=== PATIENT | female | born 1985 | race Caucasian/White ===

== ENCOUNTER 2018-09-28 08:59 | Inpatient (IN) | payer BC ==
[2018-09-28] MEDS ORDERED: Nalbuphine 10 MG/1 ML Vial IVPUSH PRN (21:29)
[2018-09-28] MEDS ORDERED: Water For Irrigation,Sterile 1,000 ML Container IRR PRN (21:29)
[2018-09-28] MEDS ORDERED: Butorphanol 1 MG/ML SDV IVPUSH PRN (21:29)
[2018-09-28] MEDS ORDERED: Tranexamic Acid 1,000 MG in Sodium Chloride 0.9% 100 ML IV PRN (21:29)
[2018-09-28] MEDS ORDERED: Sodium Chloride 0.9% 10 ML Syringe FLUSH PRN (21:29)
[2018-09-28] MEDS ORDERED: Misoprostol 200 MCG Tab PO PRN (21:29)
[2018-09-28] MEDS ORDERED: Sodium Chloride 0.9% 10 ML SDV IV PRN (21:29)
[2018-09-28] MEDS ORDERED: Methylergonovine 0.2 MG/1 ML Amp IM PRN (21:29)
[2018-09-28] MEDS ORDERED: Lidocaine 1% 50 ML MDV INJECT PRN (21:29)
[2018-09-28] MEDS ORDERED: Carboprost Tromethamine 250 MCG/1 ML Amp IM PRN (21:29)
[2018-09-28] MEDS ORDERED: Oxytocin/0.9 % Sodium Chloride 30 UNIT/500 ML BAG IV SCH (21:30)
[2018-09-29] MEDS ORDERED: Terbutaline 1 MG/ML SDV SUBCUT PRN (00:18)
[2018-09-29] MEDS ORDERED: Oxytocin/0.9 % Sodium Chloride 30 UNIT/500 ML BAG IV SCH (00:30)
[2018-09-29] MEDS: Lactated Ringers 1,000 ML IV SCH ×2 (00:33→03:35)
[2018-09-29] MEDS ORDERED: Lidocaine HCl/EPINEPHrine 5 ML IJ ONE (03:30)
--- NOTE | 2018-09-29 04:14 | PCM.PREANE ---
Preanesthetic Assessment - Procedure Proposed Procedure: Continuous Labor Epidural - Anesthesia/Transfusion/Family Hx Anesthesia History: Prior Anesthesia Without Reaction Family History of Anesthesia Reaction: No Transfusion History: No Prior Transfusion(s) - Review of Systems General: No Symptoms Pulmonary: No Symptoms Cardiovascular: No Symptoms Gastrointestinal: No Symptoms Neurological: No Symptoms Other: Reports: None - Physical Assessment Height: 5 ft 5 in Weight: 104.326 kg ASA Class: 2 Mental Status: Alert & Oriented x3 Airway Class: Mallampati = 2 Dentition: Reports: Normal Dentition Thyro-Mental Finger Breadths: 3 Mouth Opening Finger Breadths: 3 ROM/Head Extension: Full Lungs: Clear to Auscultation, Normal Respiratory Effort Cardiovascular: Regular Rate, Regular Rhythm - Lab Values: Laboratory Last Values WBC 11.28 K/uL (4.0-11.0) H 09/28/18 21:45 RBC 4.00 M/uL (4.30-5.90) L 09/28/18 21:45 Hgb 10.9 g/dL (12.0-16.0) L 09/28/18 21:45 Hct 34.0 % (36.0-46.0) L 09/28/18 21:45 MCV 85.0 fL (80.0-98.0) 09/28/18 21:45 MCH 27.3 pg (27.0-32.0) 09/28/18 21:45 MCHC 32.1 g/dL (31.0-37.0) 09/28/18 21:45 RDW Std Deviation 43.5 fl (28.0-62.0) 09/28/18 21:45 RDW Coeff of Kei 14 % (11.0-15.0) 09/28/18 21:45 Plt Count 277 K/uL (150-400) 09/28/18 21:45 MPV 10.20 fL (7.40-12.00) 09/28/18 21:45 Nucleated RBC % 0.0 /100WBC 09/28/18 21:45 Nucleated RBCs # 0 K/uL 09/28/18 21:45 Membrane Rupture POSITIVE 09/28/18 20:30 Blood Type A POSITIVE 09/28/18 21:45 Antibody Screen NEGATIVE 09/28/18 21:45 - Allergies Allergies/Adverse Reactions: Allergies Allergy/AdvReac Type Severity Reaction Status Date / Time No Known Allergies Allergy Verified 11/15/14 22:04 - Acknowledgements Anesthesia Type Planned: Epidural Pt an Appropriate Candidate for the Planned Anesthesia: Yes Alternatives and Risks of Anesthesia Discussed w Pt/Guardian: Yes Pt/Guardian Understands and Agrees with Anesthesia Plan: Yes PreAnesthesia Questionnaire HEENT History: Reports: None Cardiovascular History: Reports: None Respiratory History: Reports: Other (See Below) (Current Cough/Cold) Gastrointestinal History: Reports: GERD Genitourinary History: Reports: Other (See Below) Other Genitourinary History: Kidney stones A CLASS LINEMAN History: Reports: : 3 Para: 2 LMP (Approximate): Other Musculoskeletal History: Right arm bone cyst excision x2 Neurological History: Reports: None Psychiatric History: Reports: ADHD, Depression Endocrine/Metabolic History: Reports: None Hematologic History: Reports: None Immunologic History: Reports: None Oncologic (Cancer) History: Reports: None Dermatologic History: Reports: None - Infectious Disease History Infectious Disease History: Reports: None - Past Surgical History HEENT Surgical History: Reports: Other (See Below) Other HEENT Surgeries/Procedures: wisdom teeth extraction Musculoskeletal Surgical History: Reports: Other (See Below) Other Musculoskeletal Surgeries/Procedures:: bone cyst removes right elbow X 2 - SUBSTANCE USE Smoking Status *Q: Never Smoker Tobacco Use Within Last Twelve Months: No Second Hand Smoke Exposure: No Recreational Drug Use History: No - HOME MEDS Home Medications: Home Meds Lisdexamfetamine [Vyvanse] 20 mg PO DAILY 11/27/13 [History] Acetaminophen [Tylenol Extra Strength] 500 mg PO Q4H PRN #1 tablet 11/17/14 [Rx] Ibuprofen [Motrin] 800 mg PO Q6H PRN #1 tablet 11/17/14 [Rx] Lanolin [Lansinoh HPA] 1 g TOP ASDIRECTED PRN #1 crm 11/17/14 [Rx] Pae308/FA/Omega3/Dha/Fish Oil [ Gummies] 2 tab PO DAILY 09/28/18 [ History] Sertraline [Zoloft] 100 mg PO DAILY 09/28/18 [History] buPROPion HCl [Wellbutrin Xl] 300 mg PO DAILY 09/28/18 [History] - CURRENT (IN HOUSE) MEDS Current Meds: Current Medications Butorphanol Tartrate (Stadol) 1 mg IVPUSH ASDIRECTED PRN PRN Reason: Pain Carboprost Tromethamine (Hemabate Ds) 250 mcg IM ASDIRECTED PRN PRN Reason: Post Hemorrhage Tranexamic Acid 1,000 mg/ (Sodium Chloride) 110 mls @ 660 mls/hr IV ONETIME PRN PRN Reason: Bleeding Lactated Ringer's (Ringers, Lactated) 1,000 mls @ 150 mls/hr IV ASDIRECTED SAM Last Admin: 09/29/18 03:35 Dose: 999 mls/hr Oxytocin/Sodium Chloride (Oxytocin 30 Unit/500 Ml-Ns) 30 unit in 500 mls @ 999 mls/hr IV TITRATE SAM Oxytocin/Sodium Chloride (Oxytocin 30 Unit/500 Ml-Ns) 30 unit in 500 mls @ 2 mls/hr IV TITRATE SAM; Protocol Last Admin: 09/29/18 00:43 Dose: 2 munits/min, 2 mls/hr Lidocaine HCl (Xylocaine 1%) 50 ml INJECT ONETIME PRN PRN Reason: Laceration repair Methylergonovine Maleate (Methergine) 0.2 mg IM ASDIRECTED PRN PRN Reason: Post Hemorrhage Misoprostol (Cytotec) 200 mcg PO ONETIME PRN PRN Reason: Post Hemorrhage Nalbuphine HCl (Nubain) 10 mg IVPUSH ASDIRECTED PRN PRN Reason: Pain (severe 7-10) Sodium Chloride (Saline Flush) 10 ml FLUSH ASDIRECTED PRN PRN Reason: Keep Vein Open Sodium Chloride (Normal Saline) 10 ml IV ASDIRECTED PRN PRN Reason: IV Use Sterile Water (Sterile Water For Irrigation) 1,000 ml IRR ASDIRECTED PRN PRN Reason: delivery Terbutaline Sulfate (Brethine) 0.25 mg SUBCUT ASDIRECTED PRN PRN Reason: Tacysystole Discontinued Medications Fentanyl/Bupivacaine HCl (Zbyauwwy-Vdfwt-Ig 2 Mcg/Ml-0.125%) Confirm Administered Dose 100 mls @ as directed .ROUTE .STK-MED ONE Stop: 09/29/18 03:24 Lidocaine/Epinephrine (Lidocaine 1.5%-Epi 1:200,000) Confirm Administered Dose 5 ml IJ .STK-MED ONE Stop: 09/29/18 03:31
[2018-09-29] MEDS ORDERED: Bupivacaine 0.5% 10 ML SDV ONE (07:16)
[2018-09-29] MEDS ORDERED: fentaNYL 100 MCG/2 ML SDV ONE (07:16)
--- NOTE | 2018-09-29 07:37 | PCM.SN ---
- Free Text/Narrative Note: [id number]: Called to LDR 2 for patient complaint of pain during contractions. Since epidural placement, Patient has advanced from 4cm to 8-9cm. 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 Patient is able to move both legs with some numbness. Explained precautions of giving additional medications via epidural. Goal is to have patient comfortable but still be able to push for delivery. Provider bolus of 100 mcg of fentanyl and 5 ml of 0.5% Marcaine given at 0724. Reassessed patient at 0739. Patient states that she is much more comfortable. She verbalizes that she can still feel the contractions, move her legs and is at an acceptable level of pain.
[2018-09-29] MEDS ORDERED: Bisacodyl 10 MG Supp RECTAL PRN (10:07)
[2018-09-29] MEDS ORDERED: Witch Hazel Medicated Pads 40/Jar TOP PRN (10:07)
[2018-09-29] MEDS ORDERED: Lanolin 100% Cream 7 GM Tube TOP PRN (10:07)
[2018-09-29] MEDS ORDERED: Ibuprofen 400 MG Tab PO PRN (10:07)
[2018-09-29] MEDS ORDERED: Acetaminophen 500 MG Tab PO PRN ×2 (10:07)
[2018-09-29] MEDS ORDERED: Benzocaine/Menthol 20%-0.5% Spray 78 GM Cannister TOP PRN (10:07)
[2018-09-29] MEDS ORDERED: oxyCODONE 5 MG Tab PO PRN (10:07)
--- NOTE | 2018-09-29 11:57 | PCM.DEL ---
L & D Note - General Info Date of Service: 09/29/18 Mother's Due Date: 09/28/18 - Delivery Note Labor: Spontaneous Delivery Outcome: Livebirth Infant Delivery Method: Spontaneous Vaginal Delivery-Single Presentation: Vertex Nuchal Cord: Reduced Anesthetic: Lidocaine (Xylocaine) 1% Plain Amniotic Fluid Description: Clear Laceration: 2nd Degree Suture type: Other (monocryl ) Suture size: 2-0 Placenta: Intact Cord: 3 Vessels Estimated Blood Loss: 300 Resuscitation Needed: No : Suctioned, Stimulated, Warmed Score 1 min: 8 Score 5 min: 9 Delivery Comments (Free Text/Narrative):: Live female delivered at 859am , 8/9 weight 3730g - General Info Date of Service: 09/29/18 - Patient Data Weight - Most Recent: 104.326 kg Lab Results Last 24 Hours: Laboratory Results - last 24 hr 09/28/18 09/28/18 09/28/18 Range/Units 20:30 21:45 21:45 WBC 11.28 H (4.0-11.0) K/uL RBC 4.00 L (4.30-5.90) M/uL Hgb 10.9 L (12.0-16.0) g/dL Hct 34.0 L (36.0-46.0) % MCV 85.0 (80.0-98.0) fL MCH 27.3 (27.0-32.0) pg MCHC 32.1 (31.0-37.0) g/dL RDW Std Deviation 43.5 (28.0-62.0) fl RDW Coeff of Kei 14 (11.0-15.0) % Plt Count 277 (150-400) K/uL MPV 10.20 (7.40-12.00) fL Nucleated RBC % 0.0 /100WBC Nucleated RBCs # 0 K/uL Membrane Rupture POSITIVE Blood Type A POSITIVE Antibody Screen NEGATIVE Med Orders - Current: Current Medications Acetaminophen (Tylenol Extra Strength) 500 mg PO Q4H PRN PRN Reason: Pain Acetaminophen (Tylenol Extra Strength) 1,000 mg PO Q4H PRN PRN Reason: Pain Benzocaine/Menthol (Dermoplast Pain Relief 20%-0.5% [place]) 78 gm TOP ASDIRECTED PRN PRN Reason: Perineal Comfort Measure Bisacodyl (Dulcolax) 10 mg RECTAL ONETIME PRN PRN Reason: Constipation Butorphanol Tartrate (Stadol) 1 mg IVPUSH ASDIRECTED PRN PRN Reason: Pain Carboprost Tromethamine (Hemabate Ds) 250 mcg IM ASDIRECTED PRN PRN Reason: Post Hemorrhage Docusate Sodium (Colace) 100 mg PO BID PRN PRN Reason: Constipation Emollient Ointment (Lansinoh Hpa) 0 gm TOP ASDIRECTED PRN PRN Reason: Sore Nipples Tranexamic Acid 1,000 mg/ (Sodium Chloride) 110 mls @ 660 mls/hr IV ONETIME PRN PRN Reason: Bleeding Lactated Ringer's (Ringers, Lactated) 1,000 mls @ 150 mls/hr IV ASDIRECTED SAM Last Admin: 09/29/18 03:35 Dose: 999 mls/hr Oxytocin/Sodium Chloride (Oxytocin 30 Unit/500 Ml-Ns) 30 unit in 500 mls @ 999 mls/hr IV TITRATE SAM Oxytocin/Sodium Chloride (Oxytocin 30 Unit/500 Ml-Ns) 30 unit in 500 mls @ 2 mls/hr IV TITRATE SAM; Protocol Last Titration: 09/29/18 05:52 Dose: 14 munits/min, 14 mls/hr Ibuprofen (Motrin) 400 mg PO Q4H PRN PRN Reason: Pain Ibuprofen (Motrin) 800 mg PO Q6H PRN PRN Reason: Pain Lidocaine HCl (Xylocaine 1%) 50 ml INJECT ONETIME PRN PRN Reason: Laceration repair Methylergonovine Maleate (Methergine) 0.2 mg IM ASDIRECTED PRN PRN Reason: Post Hemorrhage Misoprostol (Cytotec) 200 mcg PO ONETIME PRN PRN Reason: Post Hemorrhage Nalbuphine HCl (Nubain) 10 mg IVPUSH ASDIRECTED PRN PRN Reason: Pain (severe 7-10) Oxycodone HCl (Oxycodone) 5 mg PO Q2H PRN PRN Reason: Pain Sodium Chloride (Saline Flush) 10 ml FLUSH ASDIRECTED PRN PRN Reason: Keep Vein Open Sodium Chloride (Normal Saline) 10 ml IV ASDIRECTED PRN PRN Reason: IV Use Sterile Water (Sterile Water For Irrigation) 1,000 ml IRR ASDIRECTED PRN PRN Reason: delivery Last Admin: 09/29/18 09:20 Dose: 1,000 ml Terbutaline Sulfate (Brethine) 0.25 mg SUBCUT ASDIRECTED PRN PRN Reason: Tacysystole Tevin Chawla (Tucks) 1 pad TOP ASDIRECTED PRN PRN Reason: comfort care Discontinued Medications Bupivacaine HCl (Sensorcaine-Mpf 0.5%) Confirm Administered Dose 10 ml .ROUTE .STK-MED ONE Stop: 09/29/18 07:17 Fentanyl (Sublimaze) Confirm Administered Dose 100 mcg .ROUTE .STK-MED ONE Stop: 09/29/18 07:17 Fentanyl/Bupivacaine HCl (Ioluoirg-Pnlfn-Nq 2 Mcg/Ml-0.125%) Confirm Administered Dose 100 mls @ as directed .ROUTE .STK-MED ONE Stop: 09/29/18 03:24 Lidocaine/Epinephrine (Lidocaine 1.5%-Epi 1:200,000) Confirm Administered Dose 5 ml IJ .STK-MED ONE Stop: 09/29/18 03:31 - Problem List & Annotations (1) Vaginal delivery SNOMED Code(s): 619567606 Code(s): O80 - ENCOUNTER FOR FULL-TERM UNCOMPLICATED DELIVERY Status: Acute Current Visit: Yes - Problem List Review Problem List Initiated/Reviewed/Updated: Yes - My Orders Last 24 Hours: My Active Orders 09/28/18 20:46 Non Stress Test [RC] PER UNIT ROUTINE Up ad Teresa [RC] ASDIRECTED Vaginal Exam [RC] Click to Edit Vital Signs [RC] PER UNIT ROUTINE Resuscitation Status Routine 09/28/18 21:29 Patient Status [ADT] Routine Heart Tones [RC] CONTINUOUS Non Stress Test [RC] PER UNIT ROUTINE May Shower [RC] ASDIRECTED Notify Provider [RC] PRN Up ad Teresa [RC] ASDIRECTED Vaginal Exam [RC] PRN Vital Signs [RC] PER UNIT ROUTINE Butorphanol [Stadol] 1 mg IVPUSH ASDIRECTED PRN Carboprost Tromethamine [Hemabate DS] 250 mcg IM ASDIRECTED PRN Lidocaine 1% [Xylocaine 1%] 50 ml INJECT ONETIME PRN Methylergonovine [Methergine] 0.2 mg IM ASDIRECTED PRN Nalbuphine [Nubain] 10 mg IVPUSH ASDIRECTED PRN Sodium Chloride 0.9% [Normal Saline] 10 ml IV ASDIRECTED PRN Sodium Chloride 0.9% [Saline Flush] 10 ml FLUSH ASDIRECTED PRN Tranexamic Acid [Cyklokapron] 1,000 mg Sodium Chloride 0.9% [Normal Saline] 100 ml IV ONETIME Water For Irrigation,Sterile [Sterile Water for Irrigation] 1,000 ml IRR ASDIRECTED PRN miSOPROStol [Cytotec] 200 mcg PO ONETIME PRN Scalp Electrode [WOMSER] Per Unit Routine Peripheral IV Insertion Adult [OM.PC] Routine 09/28/18 21:30 Lactated Ringers [Ringers, Lactated] 1,000 ml IV ASDIRECTED Oxytocin/0.9 % Sodium Chloride [Oxytocin 30 Unit/500 ML-NS] 30 unit in 500 ml IV TITRATE 09/29/18 00:18 Terbutaline [Brethine] 0.25 mg SUBCUT ASDIRECTED PRN 09/29/18 00:20 Bedrest Bathroom Privileges [RC] ASDIRECTED Communication Order [RC] ASDIRECTED Communication Order [RC] ASDIRECTED Notify Provider [RC] PRN Notify Provider [RC] STAT Oxygen Therapy [RC] ASDIRECTED Vaginal Exam [RC] PRN Vital Signs [RC] PER UNIT ROUTINE 09/29/18 00:30 Oxytocin/0.9 % Sodium Chloride [Oxytocin 30 Unit/500 ML-NS] 30 unit in 500 ml IV TITRATE Medication Administration Instruction [OM.PC] Q3H 09/29/18 10:07 Patient Status [ADT] Routine May Shower [RC] ASDIRECTED Up ad Teresa [RC] ASDIRECTED Vital Signs [RC] PER UNIT ROUTINE Acetaminophen [Tylenol Extra Strength] 1,000 mg PO Q4H PRN Acetaminophen [Tylenol Extra Strength] 500 mg PO Q4H PRN Benzocaine/Menthol [Dermoplast Pain Relief 20%-0.5% [place]] 78 gm TOP ASDIRECTED PRN Bisacodyl [Dulcolax] 10 mg RECTAL ONETIME PRN Docusate Sodium [Colace] 100 mg PO BID PRN Ibuprofen [Motrin] 400 mg PO Q4H PRN Ibuprofen [Motrin] 800 mg PO Q6H PRN Lanolin [Lansinoh HPA] See Dose Instructions TOP ASDIRECTED PRN Tevin Chawla [Tucks] 1 pad TOP ASDIRECTED PRN oxyCODONE 5 mg PO Q2H PRN Assess Lochia [WOMSER] Per Unit Routine Assess Uterine Involution [WOMSER] Per Unit Routine Peripheral IV Discontinue [OM.PC] Routine 09/29/18 Breakfast Regular Diet [DIET] 09/30/18 05:11 HEMOGLOBIN/HEMATOCRIT,HH [HEME] Timed
[2018-09-29] MEDS: Ibuprofen 800 MG Tab PO PRN ×2 (12:04→19:48)
--- NOTE | 2018-09-29 13:41 | OR ---
SURGEON: KARL YOUSIF DATE OF PROCEDURE:09/29/2018 PREOPERATIVE DIAGNOSIS: A 32-year-old, G3, P2-0-0-2 at 37wk6d, admitted in early labor. POSTOPERATIVE DIAGNOSIS: A 32-year-old, G3, P2-0-0-2 at 37wk6d, admitted in early labor. PROCEDURE: Normal spontaneous vaginal delivery. ESTIMATED BLOOD LOSS: 300 mL. ANESTHESIA: Epidural. NOTES AND FINDINGS: Live female delivered at 8:59 a.m. score is 8 and 9. Weight is 3730 g. BRIEF HISTORY: A 32-year-old, G3, P2-0-0-2, at 38 weeks, who came in at 37 weeks and 6 days complaining of rupture of membrane and some contractions. The patient was about 3 cm dilated. She was given time. She made slight change, so she was started on Pitocin. With the patient receiving Pitocin, she made change. She became fully dilated. Membrane was noted. When she was fully dilated, she was ruptured. She was then encouraged to push. DESCRIPTION OF PROCEDURE: With good pushing effort, she delivered the head subsequently by the anterior and posterior shoulder. The body of the was delivered and delayed cord clamping was observed. The perineum was inspected and noted to be intact. Cord blood gases were obtained. All instrument and pad count were correct x2. She was left in Labor and Delivery room in stable condition. MAN MELTON /[id number] MTDSugar
[2018-09-29] MEDS: Docusate Sodium 100 MG Cap PO PRN (19:49)
--- NOTE | 2018-09-30 07:18 | PCM48HPAN ---
Post Anesthesia Note - EVALUATION WITHIN 48HRS OF ANESTHETIC Vital Signs in Normal Range: Yes Patient Participated in Evaluation: Yes Respiratory Function Stable: Yes Airway Patent: Yes Cardiovascular Function Stable: Yes Hydration Status Stable: Yes Pain Control Satisfactory: Yes Nausea and Vomiting Control Satisfactory: Yes Mental Status Recovered: Yes Pulse Rate: 103 SaO2: 97 Resp Rate: 17 Temperature: 97.8 F Blood Pressure: 135/88
[2018-09-30] MEDS: Docusate Sodium 100 MG Cap PO PRN (07:35)
[2018-09-30] MEDS: Ibuprofen 800 MG Tab PO PRN (07:35)
--- NOTE | 2018-09-30 07:51 | PCM.PNPP ---
- General Info Date of Service: 09/30/18 Subjective Update: 32yo s/p , PPD 1 , ambulating , voiding and tolerating regular diet Functional Status: Reports: Pain Controlled, Tolerating Diet, Ambulating, Urinating - Review of Systems General: Reports: No Symptoms HEENT: Reports: No Symptoms Pulmonary: Reports: No Symptoms Cardiovascular: Reports: No Symptoms Gastrointestinal: Reports: No Symptoms Genitourinary: Reports: No Symptoms Musculoskeletal: Reports: No Symptoms Skin: Reports: No Symptoms Neurological: Reports: No Symptoms Psychiatric: Reports: No Symptoms - General Info Date of Service: 09/30/18 - Patient Data Vital Signs - Most Recent: Last Vital Signs Temp 36.6 C 09/30/18 07:18 Pulse 103 H 09/30/18 07:18 Resp 17 09/30/18 07:18 BP 135/88 09/30/18 07:18 Pulse Ox 97 09/30/18 07:18 Weight - Most Recent: 104.326 kg Lab Results - Last 24 Hours: Laboratory Results - last 24 hr 09/29/18 09/29/18 09/30/18 Range/Units 08:54 08:54 06:18 Hgb 10.9 L (12.0-16.0) g/dL Hct 34.0 L (36.0-46.0) % Cord ABG pH 7.220 (7.18-7.38) Cord ABG Base Excess -6 (-10--2) Cord VBG pH 7.276 (7.25-7.45) Cord VBG Base Excess -6 (-10--2) Med Orders - Current: Current Medications Acetaminophen (Tylenol Extra Strength) 500 mg PO Q4H PRN PRN Reason: Pain Acetaminophen (Tylenol Extra Strength) 1,000 mg PO Q4H PRN PRN Reason: Pain Benzocaine/Menthol (Dermoplast Pain Relief 20%-0.5% [place]) 78 gm TOP ASDIRECTED PRN PRN Reason: Perineal Comfort Measure Last Admin: 09/29/18 19:48 Dose: 78 gm Bisacodyl (Dulcolax) 10 mg RECTAL ONETIME PRN PRN Reason: Constipation Butorphanol Tartrate (Stadol) 1 mg IVPUSH ASDIRECTED PRN PRN Reason: Pain Carboprost Tromethamine (Hemabate Ds) 250 mcg IM ASDIRECTED PRN PRN Reason: Post Hemorrhage Docusate Sodium (Colace) 100 mg PO BID PRN PRN Reason: Constipation Last Admin: 09/30/18 07:35 Dose: 100 mg Emollient Ointment (Lansinoh Hpa) 0 gm TOP ASDIRECTED PRN PRN Reason: Sore Nipples Tranexamic Acid 1,000 mg/ (Sodium Chloride) 110 mls @ 660 mls/hr IV ONETIME PRN PRN Reason: Bleeding Lactated Ringer's (Ringers, Lactated) 1,000 mls @ 150 mls/hr IV ASDIRECTED SAM Last Admin: 09/29/18 03:35 Dose: 999 mls/hr Oxytocin/Sodium Chloride (Oxytocin 30 Unit/500 Ml-Ns) 30 unit in 500 mls @ 999 mls/hr IV TITRATE SAM Oxytocin/Sodium Chloride (Oxytocin 30 Unit/500 Ml-Ns) 30 unit in 500 mls @ 2 mls/hr IV TITRATE SAM; Protocol Last Titration: 09/29/18 05:52 Dose: 14 munits/min, 14 mls/hr Ibuprofen (Motrin) 400 mg PO Q4H PRN PRN Reason: Pain Ibuprofen (Motrin) 800 mg PO Q6H PRN PRN Reason: Pain Last Admin: 09/30/18 07:35 Dose: 800 mg Lidocaine HCl (Xylocaine 1%) 50 ml INJECT ONETIME PRN PRN Reason: Laceration repair Methylergonovine Maleate (Methergine) 0.2 mg IM ASDIRECTED PRN PRN Reason: Post Hemorrhage Misoprostol (Cytotec) 200 mcg PO ONETIME PRN PRN Reason: Post Hemorrhage Oxycodone HCl (Oxycodone) 5 mg PO Q2H PRN PRN Reason: Pain Sodium Chloride (Saline Flush) 10 ml FLUSH ASDIRECTED PRN PRN Reason: Keep Vein Open Sodium Chloride (Normal Saline) 10 ml IV ASDIRECTED PRN PRN Reason: IV Use Sterile Water (Sterile Water For Irrigation) 1,000 ml IRR ASDIRECTED PRN PRN Reason: delivery Last Admin: 09/29/18 09:20 Dose: 1,000 ml Witch Cammy (Tucks) 1 pad TOP ASDIRECTED PRN PRN Reason: comfort care Discontinued Medications Bupivacaine HCl (Sensorcaine-Mpf 0.5%) Confirm Administered Dose 10 ml .ROUTE .STK-MED ONE Stop: 09/29/18 07:17 Fentanyl (Sublimaze) Confirm Administered Dose 100 mcg .ROUTE .STK-MED ONE Stop: 09/29/18 07:17 Fentanyl/Bupivacaine HCl (Wztrcjsk-Gqwiu-Jm 2 Mcg/Ml-0.125%) Confirm Administered Dose 100 mls @ as directed .ROUTE .STK-MED ONE Stop: 09/29/18 03:24 Lidocaine/Epinephrine (Lidocaine 1.5%-Epi 1:200,000) Confirm Administered Dose 5 ml IJ .STK-MED ONE Stop: 09/29/18 03:31 Nalbuphine HCl (Nubain) 10 mg IVPUSH ASDIRECTED PRN PRN Reason: Pain (severe 7-10) Terbutaline Sulfate (Brethine) 0.25 mg SUBCUT ASDIRECTED PRN PRN Reason: Tacysystole - Interaction Support Person: - Recovery Exam Fundal Tone: Firm Fundal Level: 1 Fingerbreadths Below Umbilicus Fundal Placement: Midline Lochia Amount: Small, Moderate Lochia Color: Rubra/Red Perineum Description: Intact, Minimal Bruising/Swelling Episiotomy/Laceration: None Bladder Status: Voiding - Exam General: Alert HEENT: Pupils Equal, Pupils Reactive Neck: Supple Lungs: Clear to Auscultation, Normal Respiratory Effort Cardiovascular: Regular Rate, Regular Rhythm GI/Abdominal Exam: Normal Bowel Sounds Extremities: Normal Inspection Psy/Mental Status: Alert - Problem List & Annotations (1) Vaginal delivery SNOMED Code(s): 218714579 Code(s): O80 - ENCOUNTER FOR FULL-TERM UNCOMPLICATED DELIVERY Status: Acute Current Visit: Yes - Problem List Review Problem List Initiated/Reviewed/Updated: Yes - My Orders Last 24 Hours: My Active Orders 09/29/18 10:07 Patient Status [ADT] Routine May Shower [RC] ASDIRECTED Up ad Teresa [RC] ASDIRECTED Vital Signs [RC] PER UNIT ROUTINE Acetaminophen [Tylenol Extra Strength] 1,000 mg PO Q4H PRN Acetaminophen [Tylenol Extra Strength] 500 mg PO Q4H PRN Benzocaine/Menthol [Dermoplast Pain Relief 20%-0.5% [place]] 78 gm TOP ASDIRECTED PRN Bisacodyl [Dulcolax] 10 mg RECTAL ONETIME PRN Docusate Sodium [Colace] 100 mg PO BID PRN Ibuprofen [Motrin] 400 mg PO Q4H PRN Ibuprofen [Motrin] 800 mg PO Q6H PRN Lanolin [Lansinoh HPA] See Dose Instructions TOP ASDIRECTED PRN Witch Cammy [Tucks] 1 pad TOP ASDIRECTED PRN oxyCODONE 5 mg PO Q2H PRN Assess Lochia [WOMSER] Per Unit Routine Assess Uterine Involution [WOMSER] Per Unit Routine Peripheral IV Discontinue [OM.PC] Routine - Assessment Assessment:: 32 yo s/p stable , normal lochia - Plan Plan:: Discharge home today
[2018-09-30 08:14] VITALS: BP 123/71
== END 2018-09-30 11:20 | disposition home or self-care (01) | DRG 560 ==
LOC: MW.OB 08:59 → OBSVTOIN 09-29 08:59 → MW.OB 09-29 16:00
PROVIDERS: ADMIT Obstetrics & Gynecology; ATTEND Obstetrics & Gynecology
PROC: 10907ZC Drainage of Amniotic Fluid, Therapeutic from Products of Conception, Via Natural or Artificial Opening (ICD-10-PCS; principal; 2018-09-29)
PROC: 6A550ZT Pheresis of Cord Blood Stem Cells, Single (ICD-10-PCS; principal; 2018-09-29)
PROC: 10E0XZZ Delivery of Products of Conception, External Approach (ICD-10-PCS; principal; 2018-09-29)
PROC: 3E0R3BZ Introduction of Anesthetic Agent into Spinal Canal, Percutaneous Approach (ICD-10-PCS; 2018-09-29)
PROC: 00HU33Z Insertion of Infusion Device into Spinal Canal, Percutaneous Approach (ICD-10-PCS; 2018-09-29)
DX: O40.3XX0 Polyhydramnios, third trimester, not applicable or unspecified (principal); O36.63X0 Maternal care for excessive fetal growth, third trimester, not applicable or unspecified; O99.344 Other mental disorders complicating childbirth; F32.9 Major depressive disorder, single episode, unspecified; Z3A.37 37 weeks gestation of pregnancy; Z37.0 Single live birth; O69.81X0 Labor and delivery complicated by cord around neck, without compression, not applicable or unspecified; O99.62 Diseases of the digestive system complicating childbirth; K21.9 Gastro-esophageal reflux disease without esophagitis; F90.9 Attention-deficit hyperactivity disorder, unspecified type; Z87.442 Personal history of urinary calculi; Z79.899 Other long term (current) drug therapy
CPT/HCPCS: 36415; 59025; 59409; 82803; 84112; 85014; 85018; 85027; 86850; 86900; 86901; A9270-GY; J2590; J3010; J3490; J7120